=== PATIENT | male | born 1960 | race Caucasian/White ===

== ENCOUNTER → 2016-05-09 | Day surgery (SDC) | payer BC ==
[~2016-05-09] VITALS: Ht 170.2 cm; Wt 70.8 kg
[~2016-05-09] MED LIST: ACETAMINOPHEN 1000 MG/100 ML VIAL IV ONE; ACETAMINOPHEN/HYDROcodone 325 MG/5 MG TAB PO PRN; BUPIVACAINE HCL PF 0.5% 30 ML VIAL ONE; CEPH-460 PO; CYAN1000P SQ; DEXAMETHASONE SOD PHOS 4 MG/ML VIAL ONE; DO NOT ADM ANY ANTICOAGULANT DRUGS XX PRN; FAMOTIDINE 20 MG/2 ML VIAL ONE; HYDR-3288 PO; HYDR-3516 PO; INSULIN HUMAN REGULAR 1,000 UNITS/10 ML VIAL SQ PRN; LACTATED RINGER'S 1000 ML IV SCH; LEVO.1 PO; LIDOCAINE HCL 2% 20 ML VIAL INFIL ONE; LIDOCAINE HCL 2% 50 ML VIAL ONE; LIOT5TAB3 PO; MAGN1CAP2 PO; MEPERIDINE HCL 50 MG/ML VIAL IM PRN; METOPROLOL TARTRATE 25 MG TAB PO PRN; MIDAZOLAM HCL 2 MG/2 ML VIAL ONE; MULTTAB67 PO; NEOMYCIN/POLYMYXIN 1 ML G.U. IRRIGANT IR ONE; ONDANSETRON HCL 4 MG/2 ML VIAL ONE; PHENYLEPH/NS 1000 MCG/10 ML SYR IV ONE; PROPOFOL 200 MG/20 ML AMP IV ONE; SODIUM CHLORID 0.9% 500 ML IV SCH; VITA500030 CHEW; ceFAZolin 1,000 MG/NS 100 ML IV SCH; ceFAZolin INJ 1,000 MG VIAL ONE; ePHEDrine/NS 25 MG/5 ML SYR IV ONE; fentaNYL CITRATE 250 MCG/5 ML AMP ONE
[2016-05-09 07:00] VITALS: BP 121/80; PULSE 63; RESP 18; TEMP 98.7; O2SAT 97
[2016-05-09 07:10] LABS: AUTOMATED NEUTROPHIL # 8.2 TH/MM3 (1.8-7.7); BASOPHIL # 0.1 TH/MM3 (0-0.2); BASOPHIL % 0.6 % (0.0-2.0); EOSINOPHIL # 0.1 TH/MM3 (0-0.4); EOSINOPHIL % 1.2 % (0.0-4.0); HEMATOCRIT 40.4 % (39.0-51.0); HEMO FLAGS DIFF FINAL; LYMPH % 15.3 % (9.0-44.0); LYMPHOCYTE # 1.7 TH/MM3 (1.0-4.8); MEAN CELL VOLUME 83.4 FL (80.0-100.0); MEAN CORPUSCULAR HEMOGLOBIN 28.5 PG (27.0-34.0); MEAN CORPUSCULAR HGB CONC 34.1 % (32.0-36.0); MONO % 7.2 % (0.0-8.0); NEUT % 75.7 % (16.0-70.0); PLATELET COUNT 169 TH/MM3 (150-450); RED BLOOD COUNT 4.84 MIL/MM3 (4.50-5.90); RED CELL DISTRIBUTION WIDTH 13.8 % (11.6-17.2); WHITE BLOOD COUNT 10.8 TH/MM3 (4.0-11.0)
--- NOTE | 2016-05-09 08:24 | HHI.PR ---
Immediate Post Op Note Procedure Date: May 09, 2016 Pre Op Diagnosis: (1) Trapezium bone fracture, closed (2) Fracture of metacarpal base, first, right hand, closed Post Op Diagnosis: Surgeon: Anmol Riojas III Speed Belt Sander Tender(s): SELMA Procedure: Right 1st metacarpal Right trapezium Use of image intensifier Specimen(s) removed: 0 Anesthesia: General, Local Drains: None IVF Patient to: PACU Anmol Riojas III, MD May 09, 2016 08:24
[2016-05-09 11:25] VITALS: BP 105/61; PULSE 60; RESP 16; TEMP 98.6; O2SAT 98
--- NOTE | 2016-05-09 13:26 | MP ---
cc: ANMOL MCFARLANE III, M.D. DATE OF SURGERY 05/09/2016 PREOPERATIVE DIAGNOSIS 1. Right first metacarpal fracture. 2. Right trapezium fracture. PROCEDURE 1. Open reduction internal fixation right first metacarpal 2. Open reduction internal fixation right trapezium 3. Use of image intensifier SURGEON Anmol Ramirez III, MD PROCEDURE The patient brought to the operating room, placed on the operating table/ After the correct site of surgery were verified by members of each team in the room multiple times including the patient and myself and after adequate preoperative markings and preoperative written consent were verified by everyone and after adequate preoperative time-out was performed to everyone's satisfaction and after adequate general anesthesia had been achieved, the right upper extremity was prepped and draped in the traditional sterile surgical fashion. Using the mini C-arm, the site of te intended procedure was verified and the characteristics of the fractures were better elucidated. A 50/50 mixture of 2% plain lidocaine and 0.5% plain Marcaine was infiltrated in the skin and subcutaneous tissue in the areas of the fracture where the intended incision was made. The limb was exsanguinated with an John wrap. A highly placed well-padded axillary tourniquet was inflated to 200 mmHg for total of 60 minutes. A 3-cm long longitudinal incision was made overlying the trapezium and carried down through skin and subcutaneous tissue. Bipolar electrocautery was used as needed. Blunt dissection was performed. The extensor tendons were retracted in opposite directions. The radial artery was identified and protected and a longitudinal incision was made in the capsule overlying the CMC joint and exposing the trapezium and the base of the first metacarpal. Thorough irrigation was performed. Organized clot was extracted. The trapezius was found to be fractured approximately 20%/80%. I elected to repair this primarily with compression screws and this was done using the 1.5 mm screw set from the [employer] modular handset setting the screws at different angles and using the mini C-arm to guide their angle and a very good purchase was obtained. At this time, I elected to try to reduce and secure the base of the first metacarpal in a similar fashion as it was so well exposed and would give the patient much better outcome and return to function and using the 2.0 mm set, this was obtained with the first compression style screw and then the different angle securing the screw. This was done again under real-time mini C-arm guidance. Dynamic examination under C-arm then revealed that both bones moved as individual units and the fractures were held secure. The joint surfaces were almost completely reduced to near anatomic appearance. A thorough irrigation was performed. The capsule was then closed using 2-0 Ethilon sutures in a [id number] fashion and complete stability was obtained. Final x-rays were obtained. The axillary tourniquet was released and the hand and all the fingers on the right became immediately soft, pink, warm and had brisk capillary refill. The radial artery was uninjured and soft, full and pulsatile. The extensor tendons were reapproximated using 3-0 Vicryl sutures to secure the aponeurotic layers around them. Thorough irrigation was performed again. The skin edges reapproximated using a subcutaneous 3-0 Vicryl suture and running 4-0 nylon suture. The hand and arm were thoroughly cleansed and dried. Additional local anesthetic was injected into the wrist for postoperative pain control. Betadine Adaptic dressing was applied on top of the wounds as well as a well-padded, well molded short-arm thumb spica splint was made in the usual fashion. The patient was awakened from anesthesia and transported to the Post Anesthesia Care Unit awake and in stable condition at the case. The sponge, needle, instrument counts were correct at the end of the case as reported by nurses in the room. MD JEFFREY Beach III/NEELIMA /11:14 AM /1:08 PM
--- NOTE | 2016-05-09 19:04 | EKG ---
Date Performed: 05/09/2016 Time Performed: 07:28:00 PTAGE: 55 years EKG: Sinus rhythm Nonspecific ST and T wave abnormalities NO PREVIOUS TRACING DOCTOR: [place] Marc Interpretating Date/Time 05/09/2016 19:03:46
== END | disposition home or self-care (01) ==
LOC: HSDC 06:11
PROVIDERS: ATTEND Orthopaedic Surgery Hand Surgery
DX: S62.211A Bennett's fracture, right hand, initial encounter for closed fracture (principal); S62.17 Fracture of trapezium [larger multangular]; R94.31 Abnormal electrocardiogram [ECG] [EKG]; W22.8XXA Striking against or struck by other objects, initial encounter; Y93.75 Activity, martial arts
CPT/HCPCS: 01830; 25645; 26615; 76000; 85025; 93005; C1713; J0131; J0690; J1100; J2250; J2370; J2405; J3010